=== PATIENT | female | born 1960 | race Hispanic/Latino ===

== ENCOUNTER 2017-11-16 08:20 | Outpatient (CLI) | payer BC | END 2017-11-16 08:21 | disposition home or self-care (01) | LOC: BICMAMMO 08:20 | PROVIDERS: ATTEND Internal Medicine Rheumatology | DX: Z12.31 Encounter for screening mammogram for malignant neoplasm of breast (principal); M81.0 Age-related osteoporosis without current pathological fracture | CPT/HCPCS: 77063; 77067; 77080 ==

== ENCOUNTER 2018-11-30 07:51 | Outpatient (CLI) | payer BC ==
--- NOTE | 2018-11-30 08:32 | BD ---
BONE DENSITOMETRY: INDICATION: A 58-year-old female for postmenopausal osteoporosis screening. FINDINGS: Lumbar Spine: BMD (g/cm2) L1 0.772 T-Score: -2.0 L2 0.738 T-Score: -2.6 L3 0.732 T-Score: -3.2 L4 0.686 T-Score: -3.4 L1-L4 0.730 T-Score: -2.9 Previous total lumbar density from exam of 09/04/2015: 0.684. Femoral Neck: 0.622 T-Score: -2.0 Total Femur: 0.734 T-Score: -1.7 Femur density from 09/04/2015: 0.660. Impression: 1. Bone mineral density of the lumbar spine indicates osteoporosis. 2. Bone mineral density of the femoral neck indicates osteopenia. 3. There has been mild increased density at both sites when compared to the prior study. POS: [facility]
== END 2018-11-30 07:52 | disposition home or self-care (01) ==
LOC: BICMAMMO 07:51
PROVIDERS: ATTEND Family Medicine
DX: Z12.31 Encounter for screening mammogram for malignant neoplasm of breast (principal); M81.0 Age-related osteoporosis without current pathological fracture; M85.859 Other specified disorders of bone density and structure, unspecified thigh
CPT/HCPCS: 77063; 77067; 77080

== ENCOUNTER 2020-03-24 09:16 | Outpatient (CLI) | payer BC ==
--- NOTE | 2020-03-24 10:09 | MMO ---
Bilateral MAMMO Bilat Screen [facility]. CLINICAL HISTORY: Patient is 60 years old and is seen for screening. The patient has no family history of breast cancer. The patient has no personal history of cancer. The patient has a history of bilateral Breast reduction in 1997 - benign. VIEWS: The views performed were: bilateral craniocaudal with tomosynthesis and bilateral mediolateral oblique with tomosynthesis. FILMS COMPARED: The present examination has been compared to prior imaging studies performed at [facility] on 11/16/2017 and 11/30/2018, and at [facility] on 09/04/2015 and 11/24/2016. This study has been interpreted with the assistance of computer-aided detection. MAMMOGRAM FINDINGS: The breasts are heterogeneously dense, which could obscure a lesion on mammography. There are stable benign appearing calcifications seen in both breasts. There are no suspicious masses, suspicious calcifications, or new areas of architectural distortion. IMPRESSION: THERE IS NO MAMMOGRAPHIC EVIDENCE OF MALIGNANCY. A ROUTINE FOLLOW-UP MAMMOGRAM IN 1 YEAR IS RECOMMENDED. THE RESULTS OF THIS EXAM WERE SENT TO THE PATIENT. ACR BI-RADS Category 2 - Benign finding MAMMOGRAPHY NOTE: 1. A negative mammogram report should not delay a biopsy if a dominant of clinically suspicious mass is present. 2. Approximately 10% to 15% of breast cancers are not detected by mammography. 3. Adenosis and dense breasts may obscure an underlying neoplasm. Reported by: JONO PHELPS MD Electonically Signed: [id number]
--- NOTE | 2020-03-24 12:59 | BD ---
BONE DENSITOMETRY: INDICATION: Postmenopausal screening. FINDINGS: Lumbar Spine: BMD (g/cm2) L1 0.793 T-Score: -1.8 L2 0.725 T-Score: -2.8 L3 0.746 T-Score: -3.1 L4 0.736 T-Score: -3.0 L1-L4 0.750 T-Score: -2.7 Total lumbar density: 11/30/2018: 0.730. 09/04/2015: 0.684. Femoral Neck: 0.581 T-Score: -2.4 Total Femur: 0.674 T-Score: -2.2 Total femur density: 11/30/2018: 0.734. 09/04/2015: 0.660. Impression: 1. Bone mineral density of the lumbar spine indicates osteoporosis. 2. Bone mineral density of the femoral neck indicates osteopenia. POS: [facility]
== END 2020-03-24 09:17 | disposition home or self-care (01) ==
LOC: BICMAMMO 09:16
PROVIDERS: ATTEND Family Medicine
DX: Z12.31 Encounter for screening mammogram for malignant neoplasm of breast (principal); Z13.820 Encounter for screening for osteoporosis; M81.0 Age-related osteoporosis without current pathological fracture; M85.859 Other specified disorders of bone density and structure, unspecified thigh; Z98.890 Other specified postprocedural states
CPT/HCPCS: 36415; 77063; 77067; 77080; 80053; 80061; 81001; 82306; 84443; 85025

== ENCOUNTER 2022-05-05 13:47 | Outpatient (CLI) | payer OTHER | END 2022-05-05 13:48 | disposition home or self-care (01) | LOC: BICULT 13:47 | PROVIDERS: ATTEND Family Medicine | DX: I65.23 Occlusion and stenosis of bilateral carotid arteries (principal) | CPT/HCPCS: 93880 ==